=== PATIENT | male | born 1955 | race Caucasian/White ===

== ENCOUNTER 2019-03-11 18:32 | Emergency (ER) | payer OTHER ==
[2019-03-11] MEDS: KETOROLAC 30 MG INJ IM (20:05)
== END 2019-03-11 20:21 | disposition home or self-care (01) ==
LOC: FTE 18:32
DX: M54.9 Dorsalgia, unspecified (principal)
CPT/HCPCS: 96372; 99284-25

== ENCOUNTER 2019-03-14 11:17 | Emergency (ER) | payer OTHER ==
[2019-03-14] MEDS: KETOROLAC 30 MG INJ IM (11:55)
== END 2019-03-14 11:57 | disposition home or self-care (01) ==
LOC: E/R 11:17
DX: M54.9 Dorsalgia, unspecified (principal); I10 Essential (primary) hypertension
CPT/HCPCS: 96372; 99284-25; J1885